=== PATIENT | female | born 1985 | race Caucasian/White ===

== ENCOUNTER → 2017-09-12 | Outpatient (REF) | payer OTHER ==
[2017-09-12 19:46] LABS: APPEARANCE, URINE CLEAR (CLEAR); BACTERIA, URINE AUTO 1+ (NEGATIVE); BILIRUBIN, URINE AUTO NEGATIVE (NEGATIVE); BLOOD, URINE BLOOD NEGATIVE (NEGATIVE); COLOR, URINE YELLOW (YELLOW); GLUCOSE, URINE (UA) AUTO NEGATIVE (NEGATIVE); KETONE, URINE AUTO NEGATIVE (NEGATIVE); LEUKOCYTE ESTERASE, URINE AUTO TRACE (NEGATIVE); MUCUS, URINE SMALL (NEGATIVE); NITRITE, URINE AUTO NEGATIVE (NEGATIVE); PROTEIN, URINE AUTO 1+ mg/dL (NEGATIVE); RBC, URINE AUTO 1 /HPF (0-3); SQUAMOUS EPITHELIAL CELL UR AU 0 /HPF (0-6); WBC, URINE AUTO 12 /HPF (0-3)
== END ==
LOC: M LAB REF 18:40
DX: N39.0 Urinary tract infection, site not specified (principal)

== ENCOUNTER → 2018-01-08 | Outpatient (REF) | payer OTHER ==
[2018-01-08 18:26] LABS: HEMATOCRIT 35.5 % (36.0-47.0); HEMOGLOBIN 11.7 g/dl (12.0-15.5); MEAN CORPUSCULAR HEMOGLOBIN 30.1 pg (27.0-33.0); MEAN CORPUSCULAR VOLUME 91.3 fl (80.0-96.0); PLATELET COUNT, AUTOMATED 259 10^3/uL (150-450); RED BLOOD COUNT 3.89 10^6/uL (4.00-5.40); RED CELL DISTRIBUTION WIDTH 13.1 % (11.5-14.5); WHITE BLOOD COUNT 10.6 10^3/uL (4.0-10.0)
[2018-01-10 10:48] LABS: RUBELLA IgG QUALITATIVE IMMUNE (IMMUNE)
[2018-01-10 10:59] LABS: HEPATITIS B SURFACE ANTIGEN NEGATIVE (NEGATIVE)
[2018-01-10 11:18] LABS: HEPATITIS C VIRUS ABY INDEX 0.1 INDEX (<0.8)
[2018-01-10 11:19] LABS: HIV 1&2 SCREEN CENTAUR NEGATIVE (NEGATIVE)
== END ==
LOC: M LAB REF 16:54
DX: O36.80X0 Pregnancy with inconclusive fetal viability, not applicable or unspecified (principal); Z3A.00 Weeks of gestation of pregnancy not specified
CPT/HCPCS: 86762

== ENCOUNTER 2018-01-14 09:27 | Emergency (ER) | payer OTHER ==
[2018-01-14] MEDS: ACETAMINOPHEN 325 MG TAB PO (11:44)
== END 2018-01-14 11:48 | disposition home or self-care (01) ==
LOC: M ED 09:27
DX: O99.89 Other specified diseases and conditions complicating pregnancy, childbirth and the puerperium (principal); S49.91XA Unspecified injury of right shoulder and upper arm, initial encounter; V86.95XA Unspecified occupant of 3- or 4- wheeled all-terrain vehicle (ATV) injured in nontraffic accident, initial encounter; Y92.89 Other specified places as the place of occurrence of the external cause; D25.9 Leiomyoma of uterus, unspecified; N83.202 Unspecified ovarian cyst, left side; Z3A.01 Less than 8 weeks gestation of pregnancy
CPT/HCPCS: 73030

== ENCOUNTER → 2018-06-07 | Outpatient (CLI) | payer OTHER ==
[2018-06-07 12:25] LABS: HEMATOCRIT 31.9 % (36.0-47.0); HEMOGLOBIN 10.4 g/dl (12.0-15.5); MEAN CORPUSCULAR HEMOGLOBIN 30.1 pg (27.0-33.0); MEAN CORPUSCULAR HGB CONC 32.6 g/dl (32.0-36.5); MEAN CORPUSCULAR VOLUME 92.2 fl (80.0-96.0); PLATELET COUNT, AUTOMATED 212 10^3/uL (150-450); RED BLOOD COUNT 3.46 10^6/uL (4.00-5.40); RED CELL DISTRIBUTION WIDTH 12.7 % (11.5-14.5); WHITE BLOOD COUNT 11.9 10^3/uL (4.0-10.0)
[2018-06-07 12:53] LABS: GLUCOSE CHALLENGE TEST 1 HOUR 146 MG/DL (LESS THAN 140)
== END ==
LOC: M LAB 10:50
DX: Z34.02 Encounter for supervision of normal first pregnancy, second trimester (principal); Z3A.00 Weeks of gestation of pregnancy not specified
CPT/HCPCS: 82950

== ENCOUNTER → 2018-06-18 | Outpatient (CLI) | payer OTHER ==
[2018-06-18 08:56] LABS: GLUCOSE, FASTING 103 MG/DL (LESS THAN 95)
[2018-06-18 10:08] LABS: 1 HR GLUCOSE 184 MG/DL (LESS THAN 180)
[2018-06-18 11:02] LABS: 2 HR GLUCOSE 130 MG/DL (LESS THAN 155)
[2018-06-18 12:33] LABS: 3 HR GLUCOSE 62 MG/DL (LESS THAN 140)
== END ==
LOC: M LAB 08:08
DX: R73.02 Impaired glucose tolerance (oral) (principal)
CPT/HCPCS: 82951

== ENCOUNTER → 2018-07-26 | Outpatient (REF) | payer OTHER ==
[~2018-07-26] MED LIST: ACET500T15 PO; PRENCHW PO
== END ==
LOC: M LAB REF 13:30
PROVIDERS: ATTEND Obstetrics & Gynecology
DX: Z34.83 Encounter for supervision of other normal pregnancy, third trimester (principal)

== ENCOUNTER 2018-08-12 19:01 | Outpatient (CLI) | payer OTHER ==
[~2018-08-12] VITALS: Ht 167.6 cm; Wt 125.9 kg
[2018-08-12 19:28] VITALS: BP 129/68
[2018-08-12] MEDS ORDERED: VALT500T PO (19:45)
[2018-08-12 20:08] VITALS: BP 124/60
[2018-08-12 20:59] VITALS: BP 124/60
== END 2018-08-12 20:53 | disposition home or self-care (01) ==
LOC: M LDO 19:01
PROVIDERS: ATTEND Obstetrics & Gynecology
DX: O99.89 Other specified diseases and conditions complicating pregnancy, childbirth and the puerperium (principal); E16.2 Hypoglycemia, unspecified; Z3A.38 38 weeks gestation of pregnancy
CPT/HCPCS: 59025; G0378; G0463

== ENCOUNTER 2018-08-22 06:15 | Inpatient (IN) | payer OTHER ==
[2018-08-22] VITALS (39 sets, daily range): BP systolic 125–194; BP diastolic 65–103
[~2018-08-22] VITALS: Ht 167.6 cm; Wt 125.2 kg
[~2018-08-22 06:15] MED LIST changes: +VALT500T PO
[2018-08-22] MEDS ORDERED: LACTATED RINGER'S 1000 ML IV STA (07:13)
[2018-08-22 08:09] LABS: HEMATOCRIT 33.2 % (36.0-47.0); HEMOGLOBIN 10.8 g/dl (12.0-15.5); MEAN CORPUSCULAR HEMOGLOBIN 28.4 pg (27.0-33.0); MEAN CORPUSCULAR HGB CONC 32.5 g/dl (32.0-36.5); MEAN CORPUSCULAR VOLUME 87.4 fl (80.0-96.0); PLATELET COUNT, AUTOMATED 187 10^3/uL (150-450); WHITE BLOOD COUNT 7.9 10^3/uL (4.0-10.0)
[2018-08-22] MEDS ORDERED: AMPICILLIN SOD 2 GM in APPROPRIATE DILUENT 20 ML IV STA (08:24)
[2018-08-22 08:39] LABS: ALBUMIN 2.5 GM/DL (3.2-5.2); ALT/SGPT 14 U/L (12-78); BILIRUBIN,TOTAL 0.2 MG/DL (0.2-1.0); BLOOD UREA NITROGEN 9 MG/DL (7-18); CALCIUM LEVEL 8.8 MG/DL (8.5-10.1); CARBON DIOXIDE LEVEL 21 MEQ/L (21-32); CHLORIDE LEVEL 108 MEQ/L (98-107); CREATININE FOR GFR 0.48 MG/DL (0.55-1.30); GLOMERULAR FILTRATION RATE > 60.0 (>60); GLUCOSE, FASTING 83 MG/DL (70-100); POTASSIUM SERUM 4.1 MEQ/L (3.5-5.1); SODIUM LEVEL 139 MEQ/L (136-145)
[2018-08-22] MEDS ORDERED: miSOPROStol 50 MCG 1/2 TAB (S0191) As Ordered ONE (08:39)
[2018-08-22] MEDS: miSOPROStol 50 MCG 1/2 TAB (S0191) PO SCH ×2 (08:43→13:33)
[2018-08-22] MEDS: LR 1,000 ML IV SCH ×3 (09:26→23:13)
[2018-08-22] MEDS: AMPICILLIN SOD 1 GM in APPROPRIATE DILUENT 10 ML IV SCH ×3 (13:33→21:21)
[2018-08-22] MEDS ORDERED: OXYTOCIN 30 UNITS IN 0.9% NaCl 500ML IV BAG (J2590) As Ordered ONE (18:38)
[2018-08-22] MEDS ORDERED: OXYTOCIN DRIP 30 UNITS in APPROPRIATE DILUENT 1 EA IV SCH ×2 (18:45→19:00)
[2018-08-22] MEDS ORDERED: FENTANYL 2MCG/ML ROPIVACAINE 0.2% IN 0.9% NACL 100ML IVBAG As Ordered ONE (22:09)
[2018-08-22] MEDS ORDERED: ONDANSETRON 4MG/2ML VIAL (J2405) IV PRN (23:45)
[2018-08-22] MEDS ORDERED: ePHEDrine SULFATE 25 MG/5 ML(5MG/ML) SYRINGE IV PRN (23:45)
[2018-08-22] MEDS ORDERED: FENTANYL/ROPIVACAINE/NACL BAG 100 ML EPIDURAL SCH (23:45)
[2018-08-22] MEDS ORDERED: REFRIGERATOR IV KEYS XX PRN (23:45)
[2018-08-22] MEDS ORDERED: diphenhydrAMINE INJ 50MG/ML VIAL (J1200) IV PRN (23:45)
[2018-08-22] MEDS ORDERED: NALOXONE INJ 0.4 MG/1 ML VIAL (J2310) IV PRN (23:45)
[2018-08-22] MEDS ORDERED: EPIDURAL/PCA KEYS XX PRN (23:45)
[2018-08-22] MEDS ORDERED: EPIDURAL COMMENT XX SCH (23:45)
[2018-08-23] VITALS (39 sets, daily range): BP systolic 118–168; BP diastolic 56–122
[2018-08-23] MEDS: AMPICILLIN SOD 1 GM in APPROPRIATE DILUENT 10 ML IV SCH ×3 (01:00→12:09)
[2018-08-23] MEDS: LR 1,000 ML IV SCH (07:25)
[2018-08-23] MEDS ORDERED: ACETAMINOPHEN 500 MG TAB PO PRN (12:00)
[2018-08-23] MEDS ORDERED: GENTAMICIN 80 MG in APPROPRIATE DILUENT 1 EA IV SCH (13:00)
[2018-08-23] MEDS ORDERED: BICITRA 30ML SOLN UDC PO ONE (13:30)
[2018-08-23] MEDS ORDERED: ONDANSETRON 4MG/2ML VIAL (J2405) As Ordered ONE (14:24)
[2018-08-23] MEDS ORDERED: dexameTHASONE 4 MG/ML 1ML VIAL (J1100) As Ordered ONE (14:24)
[2018-08-23] MEDS ORDERED: OXYTOCIN INJ 10 UNITS/ML VIAL (J2590) As Ordered ONE (14:24)
[2018-08-23] MEDS ORDERED: KETOROLAC 60 MG/2 ML VIAL (J1885) As Ordered ONE (14:24)
[2018-08-23] MEDS ORDERED: MORPHINE PRES-FREE INJ 10 MG/10 ML VIAL (J2274) As Ordered ONE (14:25)
[2018-08-23] MEDS ORDERED: LIDOCAINE PRES-FREE 2% 10ML AMP As Ordered ONE (14:26)
[2018-08-23] MEDS ORDERED: diphenhydrAMINE INJ 50MG/ML VIAL (J1200) IV PRN (14:30)
[2018-08-23] MEDS ORDERED: METOCLOPRAMIDE INJ 10MG/2ML VIAL (J2765) IV PRN (14:30)
[2018-08-23] MEDS ORDERED: ONDANSETRON 4MG/2ML VIAL (J2405) IV PRN ×2 (14:30→14:45)
[2018-08-23] MEDS ORDERED: NALBUPHINE HCL 10 MG/ML AMP (J2300) IV PRN (14:30)
[2018-08-23] MEDS ORDERED: NALOXONE INJ 0.4 MG/1 ML VIAL (J2310) IV PRN ×2 (14:30)
[2018-08-23] MEDS ORDERED: OXYTOCIN DRIP 30 UNITS in APPROPRIATE DILUENT 1 EA IV SCH (14:35)
[2018-08-23] MEDS ORDERED: RHOGAM 300 MCG (1500 IU) INJ (J2790) IM SCH (14:45)
[2018-08-23] MEDS ORDERED: NORCO, ANEXSIA 5/325MG TABLET (HYDROcodone/ACETAMINOPHEN) PO PRN ×2 (14:45)
[2018-08-23] MEDS ORDERED: MOM 30ML SUSPENSION UDC PO PRN (14:45)
[2018-08-23] MEDS ORDERED: MEASLES,MUMPS,RUBELLA VACCINE INJ (MMR-II) (90707) SC SCH (14:45)
[2018-08-23] MEDS ORDERED: OXYTOCIN 30 UNITS IN 0.9% NaCl 500ML IV BAG (J2590) As Ordered ONE (14:57)
[2018-08-23] MEDS ORDERED: fentaNYL 100 MCG/2 ML INJECTION (J3010) IV PRN (15:00)
[2018-08-23] MEDS ORDERED: PERCOCET 5MG/325MG TAB PO PRN (15:00)
[2018-08-23 15:01] LABS: CORD GAS ABE A -5.3; CORD GAS HCO3 A 20.1 MEQ/L; CORD GAS O2 SAT A 93.3 %; CORD GAS PCO2 A 38.9 mmHg; CORD GAS PO2 A 55.9 mmHg; CORD GAS SBC A 20.1 MEQ/L; CORD GAS TCO2 A 21.3 MEQ/L
[2018-08-23 15:03] LABS: CORD GAS PH A 7.331 UNITS
[2018-08-23 15:05] LABS: CORD GAS ABE V -4.1; CORD GAS HCO3 V 23.7 MEQ/L; CORD GAS O2 SAT V 39.3 %; CORD GAS PCO2 V 54.2 mmHg; CORD GAS PH V 7.259 UNITS; CORD GAS PO2 V 19.6 mmHg; CORD GAS SBC V 19.8 MEQ/L; CORD GAS TCO2 V 25.4 MEQ/L
--- NOTE | 2018-08-23 18:17 | HPE ---
DATE OF ADMISSION: 08/22/2018 Katya is a 33-year-old female, 1, para 0 with an estimated date of confinement (EDC) of 08/26/2018, estimated gestational age (EGA) 39-4/7 weeks gestation, who has a history of gestational diabetes, diet controlled, and was found to have suspected macrosomia on ultrasound. After counseling, a decision was made to admit the patient for an induction. Induction process discussed with the patient in the office. Induction consent signed. Upon admission no bleeding. No leakage of fluid. Good movement. Her record reviewed, other than advanced maternal age and gestational diabetes, uncomplicated course. LABORATORIES: Blood type is O positive, rubella immune. Hepatitis negative, HIV negative, GC/chlamydia negative. One-hour sugar testing was abnormal, so was her 3-hour sugar testing. Her GBS is positive. PAST MEDICAL HISTORY: Significant for migraine. The patient does have a history of herpes. Was on Valtrex treatment. PAST SURGICAL HISTORY: 1. [place] tooth extraction. 2. Breast reduction. SOCIAL HISTORY: The patient denies any alcohol, drugs or cigarette smoking. She is a homosexual relationship. MEDICATIONS: vitamin. ALLERGIES: No known drug allergies. PHYSICAL EXAMINATION: HEENT: Grossly within normal limits. Mildly obese female. Abdomen soft, nontender, nondistended. Extremities: No clubbing, cyanosis, or edema. Vaginal exam: Fingertip thick posterior. Fetus at -3 station in a vertex position. A thorough vaginal exam done. No evidence of any herpes lesion noted. Tracing reviewed: Category 1 tracing. ASSESSMENT: 1. Intrauterine at 39-4/7 weeks gestation, being admitted for induction. 2. Gestational diabetes, diet controlled. 3. History of herpes but no active lesion. Currently on suppressive therapy. 4. Suspected macrosomia on ultrasound. PLAN: Patient admitted to labor and delivery. Induction process discussed with the patient in great detail as well as complications that can occur from gestational diabetes and macrosomia, not to exclude shoulder dystocia. The risks and benefits of induction discussed with the patient in great detail as well as potential for section. The patient completely understands and wishes to proceed with the induction process.
[2018-08-23] MEDS: DOCUSATE SODIUM 100 MG CAP PO SCH (21:57)
[2018-08-23] MEDS: IBUPROFEN 800 MG TAB PO SCH (21:58)
[2018-08-24] MEDS: IBUPROFEN 800 MG TAB PO SCH ×3 (05:48→21:52)
[2018-08-24 06:23] VITALS: BP 121/73
[2018-08-24 06:41] LABS: HEMATOCRIT 26.4 % (36.0-47.0); HEMOGLOBIN 8.5 g/dl (12.0-15.5); MEAN CORPUSCULAR HEMOGLOBIN 28.6 pg (27.0-33.0); MEAN CORPUSCULAR HGB CONC 32.2 g/dl (32.0-36.5); MEAN CORPUSCULAR VOLUME 88.9 fl (80.0-96.0); PLATELET COUNT, AUTOMATED 154 10^3/uL (150-450); RED BLOOD COUNT 2.97 10^6/uL (4.00-5.40); WHITE BLOOD COUNT 15.2 10^3/uL (4.0-10.0)
[2018-08-24] MEDS: DOCUSATE SODIUM 100 MG CAP PO SCH ×2 (07:33→21:51)
[2018-08-24] MEDS: PRENATAL VITAMINS CHEWABLE TABLET PO SCH (07:33)
[2018-08-24 10:00] VITALS: BP 134/80
[2018-08-24] MEDS ORDERED: PERCOCET PO (13:35)
[2018-08-24] MEDS ORDERED: IBUP80TA PO (13:35)
[2018-08-24 14:34] VITALS: BP 120/58
[2018-08-24 22:18] VITALS: BP 141/80
[2018-08-25 02:24] VITALS: BP 138/85
[2018-08-25] MEDS: IBUPROFEN 800 MG TAB PO SCH (06:33)
[2018-08-25 06:49] VITALS: BP 153/92
[2018-08-25] MEDS: PRENATAL VITAMINS CHEWABLE TABLET PO SCH (07:59)
[2018-08-25] MEDS: DOCUSATE SODIUM 100 MG CAP PO SCH (07:59)
--- NOTE | 2018-08-25 19:15 | RO ---
DATE OF PROCEDURE: 08/23/2018 Katya is a 33-year-old female 1, para 0 who was admitted at 39-4/7 weeks gestation for an induction with a history of gestational diabetes, diet control, suspected macrosomia on ultrasound. After counseling, we then proceeded with Cytotec, followed by artificial rupture of membrane and Pitocin induction. She progressed to approximately 8 cm with arrest of dilatation as well as significant scalp molding. Given her current condition, we had an extensive discussion and decision was made to proceed with a primary low transverse section. PREOPERATIVE DIAGNOSES: 1. Term . 2. Arrest of dilatation with significant caput. 3. Gestational diabetes, diet control. 4. Suspected macrosomia on ultrasound. POSTOPERATIVE DIAGNOSES: 1. Term . 2. Arrest of dilatation with significant caput. 3. Gestational diabetes, diet control. 4. Suspected macrosomia on ultrasound. 5. Nuchal cord times one. 6. macrosomia. PROCEDURE: Primary low transverse section via Pfannenstiel incision. SURGEON: Mandeep Adams DO SMOKE TESTER: Dr. Luna ANESTHESIA: Epidural. COMPLICATIONS: None. ESTIMATED BLOOD LOSS: 600 mL. FINDINGS: Live female in occiput transverse position. score 9 and 9. weight 9 pounds 11 ounces. Normal appearing tubes and ovaries. Cord blood and cord gas were sent. DESCRIPTION OF PROCEDURE: After obtaining informed consent, the patient was taken to the operating room where epidural anesthetic was found to be adequate. She was then draped and prepped in the usual sterile fashion in the supine position. At this point, a Pfannenstiel incision was made. This was carried down to the fascia. Fascia was incised in midline fashion and carried through laterally. With the help of Dr. Meza, the inferior and superior aspect of the fascia was then dissected off the rectus muscles sharply. The inferior aspect was dissected off in a similar fashion. The peritoneal cavity was entered. A Mobius skin retractor was placed. A low transverse uterine incision was made. was delivered in atraumatic fashion. Nose and mouth bulb suctioned. Cord doubly clamped and cut and was handed over to the waiting warmer. Cord blood and cord gas were sent. Placenta removed manually. Uterus cleared of all clot and debris, and the uterine incision was then repaired in two separate layers of #0 Vicryl sutures. All superficial bleeders were then coagulated. Peritoneum closed in a running fashion using #2-0 Vicryl suture. Fascia closed in two separate segment of #0 Vicryl sutures. All superficial bleeders coagulated, and the skin was reapproximated in subcuticular fashion using #3-0 Vicryl on a Jimbo. Steri-Strips placed. The patient tolerated the procedure well. She was then transferred to recovery room in stable condition.
--- NOTE | 2018-08-27 17:53 | DSES ---
DATE OF ADMISSION: 08/22/2018 DATE OF DISCHARGE: 08/25/2018 33-year-old, G-1, P-0, female, 39 4/7 weeks' gestation is admitted for labor induction. She has diet controlled diabetes and suspected macrosomia. HOSPITAL COURSE: The patient was admitted on 08/22/2018. She had labor induction. She made slow progress in labored. She was eventually diagnosed with arrest of dilatation. On 08/23/2018, she underwent primary section for a 9 pound, 11 ounce female. The procedure was uncomplicated. Her postoperative course was unremarkable. She return of bladder and bowel function. Postoperative hemoglobin was 8.5 per dl. She is deemed stable for discharge on postoperative day 2. ADMISSION DIAGNOSIS: 1. . 2. Gestational diabetes, diet controlled. 3. Suspected macrosomia. DISCHARGE DIAGNOSES: 1. Delivered. PROCEDURE: Primary low-transverse section. DISPOSITION: The patient will followup with dr. Adams in two weeks. Instructions were reviewed
== END 2018-08-25 11:30 | disposition home or self-care (01) | DRG 540 ==
LOC: M LDI 06:15 → M OBS 08-23 15:54
PROVIDERS: ADMIT Obstetrics & Gynecology; ATTEND Obstetrics & Gynecology
PROC: 3E0P7GC Introduction of Other Therapeutic Substance into Female Reproductive, Via Natural or Artificial Opening (ICD-10-PCS; 2018-08-22)
PROC: 10D00Z1 Extraction of Products of Conception, Low, Open Approach (ICD-10-PCS; principal; 2018-08-23 13:47)
DX: O36.63X0 Maternal care for excessive fetal growth, third trimester, not applicable or unspecified (principal); Z3A.39 39 weeks gestation of pregnancy; O99.824 Streptococcus B carrier state complicating childbirth; O24.420 Gestational diabetes mellitus in childbirth, diet controlled; O62.0 Primary inadequate contractions; O69.81X0 Labor and delivery complicated by cord around neck, without compression, not applicable or unspecified; Z37.0 Single live birth

== ENCOUNTER → 2018-10-18 | Outpatient (CLI) | payer OTHER ==
[~2018-10-18] MED LIST changes: +IBUP80TA PO; +PERCOCET PO
== END ==
LOC: M LAB 08:42
PROVIDERS: ATTEND Obstetrics & Gynecology
DX: O24.420 Gestational diabetes mellitus in childbirth, diet controlled (principal); Z3A.00 Weeks of gestation of pregnancy not specified

== ENCOUNTER → 2019-04-21 | Outpatient (REF) | payer OTHER ==
[2019-04-21 14:56] LABS: APPEARANCE, URINE CLEAR (CLEAR); BACTERIA, URINE AUTO NEGATIVE (NEGATIVE); BILIRUBIN, URINE AUTO NEGATIVE (NEGATIVE); BLOOD, URINE BLOOD NEGATIVE (NEGATIVE); COLOR, URINE YELLOW (YELLOW); GLUCOSE, URINE (UA) AUTO NEGATIVE (NEGATIVE); KETONE, URINE AUTO NEGATIVE (NEGATIVE); LEUKOCYTE ESTERASE, URINE AUTO NEGATIVE (NEGATIVE); NITRITE, URINE AUTO NEGATIVE (NEGATIVE); PROTEIN, URINE AUTO NEGATIVE (NEGATIVE); RBC, URINE AUTO 0 /HPF (0-3); SPECIFIC GRAVITY URINE AUTO 1.018 (1.002-1.035); SQUAMOUS EPITHELIAL CELL UR AU 2 /HPF (0-6); UROBILINOGEN, URINE AUTO 0.2 mg/dL (0.0-2.0); WBC, URINE AUTO 0 /HPF (0-3)
== END ==
LOC: M LAB REF 08:32
PROVIDERS: ATTEND Physician Assistant Medical
DX: N39.0 Urinary tract infection, site not specified (principal)

== ENCOUNTER 2021-11-12 17:53 | Emergency (ER) | payer OTHER ==
[~2021-11-12] VITALS: Ht 167.6 cm; Wt 109.8 kg
[2021-11-13] MEDS ORDERED: ONDANSETRON 4MG/2ML VIAL IV ONE (01:15)
[2021-11-13] MEDS ORDERED: NS 1,000 ML IV ONE (01:15)
[2021-11-13 01:33] LABS: BASO % 0.4 % (0.0-1.0); HEMATOCRIT 39.6 % (36.0-47.0); HEMOGLOBIN 13.3 g/dl (12.0-15.5); LYMPH # 0.6 10^3/uL (1.5-5.0); LYMPH % 8.1 % (24.0-44.0); MEAN CORPUSCULAR HEMOGLOBIN 30.2 pg (27.0-33.0); MEAN CORPUSCULAR HGB CONC 33.6 g/dl (32.0-36.5); MEAN CORPUSCULAR VOLUME 89.8 fl (80.0-96.0); MONO # 0.7 10^3/uL (0.0-0.8); MONO % 9.2 % (2.0-8.0); NEUTROPHILS # 5.9 10^3/uL (1.5-8.5); PLATELET COUNT, AUTOMATED 205 10^3/uL (150-450); RED BLOOD COUNT 4.41 10^6/uL (4.00-5.40); WHITE BLOOD COUNT 7.2 10^3/uL (4.0-10.0)
[2021-11-13] MEDS ORDERED: ACETAMINOPHEN 325 MG TAB PO ONE (02:00)
[2021-11-13] MEDS ORDERED: KETOROLAC 30 MG/ML 1ML VIAL IV ONE (02:00)
[2021-11-13 02:04] LABS: BLOOD UREA NITROGEN 10 MG/DL (7-18); CALCIUM LEVEL 8.6 MG/DL (8.5-10.1); CARBON DIOXIDE LEVEL 24 MEQ/L (21-32); CHLORIDE LEVEL 106 MEQ/L (98-107); CREATININE FOR GFR 0.78 MG/DL (0.55-1.30); GLOMERULAR FILTRATION RATE > 60.0 (>60); GLUCOSE, FASTING 101 MG/DL (70-100); POTASSIUM SERUM 3.7 MEQ/L (3.5-5.1); SODIUM LEVEL 139 MEQ/L (136-145)
[2021-11-13 03:04] VITALS: BP 130/88
== END 2021-11-13 03:05 | disposition home or self-care (01) ==
LOC: M ED 17:53
DX: U07.1 COVID-19 (principal); R50.9 Fever, unspecified; I45.19 Other right bundle-branch block; Z79.899 Other long term (current) drug therapy
CPT/HCPCS: 71046; 80048; 84484; 84702; 85025; 87486; 87581; 87633; 87798; 93005; 96361; 96374; 96375; 99284; J1885; J2405

== ENCOUNTER → 2022-03-04 | Outpatient (CLI) | payer OTHER | LOC: M WUC 13:10 | PROVIDERS: ATTEND Student in an Organized Health Care Education/Training Program | DX: M25.511 Pain in right shoulder (principal) ==

== ENCOUNTER 2022-06-13 23:10 | Emergency (ER) | payer OTHER ==
[~2022-06-13] VITALS: Ht 170.2 cm; Wt 110.5 kg
[2022-06-14] MEDS ORDERED: ACETAMINOPHEN TAB 650MG DOSE (2X325MG) PO ONE (07:25)
[2022-06-14] MEDS ORDERED: KETOROLAC 30 MG/ML 1ML VIAL IM ONE (07:25)
[2022-06-14 08:27] VITALS: BP 135/83
[2022-06-14] MEDS ORDERED: MEDR4PAK PO (09:02)
[2022-06-14] MEDS ORDERED: NORCO, ANEXSIA 5/325MG TABLET (HYDROcodone/ACETAMINOPHEN) PO ONE (09:30)
== END 2022-06-14 09:47 | disposition home or self-care (01) ==
LOC: M ED 23:10
DX: G89.29 Other chronic pain (principal); M54.41 Lumbago with sciatica, right side; M51.36 Other intervertebral disc degeneration, lumbar region; Z79.899 Other long term (current) drug therapy
CPT/HCPCS: 93971; 96372; 99283; J1885

== ENCOUNTER → 2022-06-23 | Outpatient (REF) | payer OTHER ==
[~2022-06-23] MED LIST changes: +MEDR4PAK PO
== END ==
LOC: M LAB REF 12:14
PROVIDERS: ATTEND Physician Assistant
DX: B34.9 Viral infection, unspecified (principal)

== ENCOUNTER 2023-07-07 09:27 | Emergency (ER) | payer OTHER ==
[~2023-07-07] VITALS: Ht 170.2 cm; Wt 109.1 kg
[2023-07-07] MEDS ORDERED: WELLTAB38 PO (09:44)
[2023-07-07] MEDS ORDERED: HYDR-4570 PO (09:45)
[2023-07-07 10:44] LABS: RSV AMPLIFICATION NEGATIVE (NEGATIVE)
[2023-07-07] MEDS ORDERED: KETOROLAC 30 MG/ML 1ML VIAL IV ONE (11:35)
[2023-07-07] MEDS ORDERED: ONDANSETRON 4MG 2ML VIAL IV ONE (11:35)
[2023-07-07] MEDS ORDERED: NS 1,000 ML IV ONE (11:35)
[2023-07-07 12:18] LABS: BASO % 0.2 % (0.0-1.0); EOS % 0.1 % (0.0-3.0); HEMATOCRIT 47.3 % (36.0-47.0); HEMOGLOBIN 15.8 g/dl (12.0-15.5); LYMPH # 0.5 10^3/uL (1.5-5.0); LYMPH % 2.7 % (24.0-44.0); MEAN CORPUSCULAR HEMOGLOBIN 30.2 pg (27.0-33.0); MEAN CORPUSCULAR HGB CONC 33.4 g/dl (32.0-36.5); MEAN CORPUSCULAR VOLUME 90.4 fl (80.0-96.0); MONO # 0.7 10^3/uL (0.0-0.8); MONO % 3.8 % (2.0-8.0); NEUTROPHILS # 15.8 10^3/uL (1.5-8.5); NEUTROPHILS % 92.8 % (36.0-66.0); PLATELET COUNT, AUTOMATED 272 10^3/uL (150-450); RED BLOOD COUNT 5.23 10^6/uL (4.00-5.40)
[2023-07-07] MEDS ORDERED: ISOVUE-370 76% 100ML VIAL As Ordered ONE (12:23)
[2023-07-07 12:47] LABS: ALBUMIN 3.7 G/DL (3.2-5.2); BILIRUBIN,DIRECT 0.3 MG/DL (<0.4); BILIRUBIN,TOTAL 0.9 MG/DL (0.3-1.2); TOTAL PROTEIN 7.3 G/DL (5.7-8.2)
[2023-07-07] MEDS ORDERED: ONDA4TAB6 PO (14:19)
[2023-07-07] MEDS ORDERED: DICY20TA20 PO (14:19)
[2023-07-07 14:44] VITALS: BP 118/75; TEMP 98.3; O2SAT 100
== END 2023-07-07 14:47 | disposition home or self-care (01) ==
LOC: M ED 09:27
DX: A09 Infectious gastroenteritis and colitis, unspecified (principal); M54.9 Dorsalgia, unspecified; F41.9 Anxiety disorder, unspecified; Z79.899 Other long term (current) drug therapy
CPT/HCPCS: 74177; 80047; 80076; 83690; 84702; 85025; 87631; 96374; 96375; 99284; J1885; J2405; Q9967

== ENCOUNTER → 2023-10-26 | Outpatient (CLI) | payer OTHER ==
[~2023-10-26] MED LIST changes: +DICY20TA20 PO; +HYDR-4570 PO; +ONDA4TAB6 PO; +WELLTAB38 PO
[2023-10-26 11:05] LABS: HEMOGLOBIN A1c 5.2 % (4.0-6.0)
[2023-10-26 11:10] LABS: ALBUMIN 3.4 G/DL (3.2-5.2); ALKALINE PHOSPHATASE 83 U/L (46-116); ALT/SGPT 25 U/L (7.0-40); AST/SGOT 23 U/L (<34); BILIRUBIN,DIRECT 0.2 MG/DL (<0.4); BILIRUBIN,TOTAL 0.4 MG/DL (0.3-1.2); CREATININE FOR GFR 0.74 MG/DL (0.55-1.30); GLOMERULAR FILTRATION RATE > 60.0 (>58)
== END ==
LOC: M LAB 08:56
PROVIDERS: ATTEND Internal Medicine Obesity Medicine
DX: E66.3 Overweight (principal)

== ENCOUNTER → 2024-03-07 | Outpatient (CLI) | payer OTHER ==
[~2024-03-07] MED LIST changes: +ONDA-282 PO; -ONDA4TAB6 PO
== END ==
LOC: M WHC 10:00
PROVIDERS: ATTEND Obstetrics & Gynecology
DX: Z12.31 Encounter for screening mammogram for malignant neoplasm of breast (principal)

== ENCOUNTER → 2024-07-09 | Outpatient (CLI) | payer OTHER ==
[2024-07-09 10:09] LABS: HEMOGLOBIN A1c 5.1 % (4.0-6.0)
[2024-07-09 10:12] LABS: ALBUMIN 3.3 G/DL (3.2-5.2); ALKALINE PHOSPHATASE 75 U/L (35-104); ALT/SGPT 14 U/L (7.0-40); AST/SGOT 13 U/L (<34); BILIRUBIN,DIRECT 0.1 MG/DL (<0.4); BILIRUBIN,TOTAL 0.3 MG/DL (0.3-1.2); CREATININE FOR GFR 0.77 MG/DL (0.55-1.30); GLOMERULAR FILTRATION RATE > 60.0 (>58); TOTAL PROTEIN 6.7 G/DL (5.7-8.2); TRIGLYCERIDES LEVEL 60 MG/DL (<150)
== END ==
LOC: M LAB 09:20
PROVIDERS: ATTEND Personal Emergency Response Attendant
DX: E66.9 Obesity, unspecified (principal)

== ENCOUNTER → 2025-02-12 | Outpatient (CLI) | payer OTHER ==
[~2025-02-12] MED LIST changes: +HYDR-3364 PO; -HYDR-4570 PO; +PROHANCE 279.3MG/ML 15ML VIAL ONE; +PROHANCE 279.3MG/ML 5ML VIAL ONE
== END ==
LOC: M PLAIMG 09:58
PROVIDERS: ATTEND Physician Assistant
DX: M47.26 Other spondylosis with radiculopathy, lumbar region (principal); M51.16 Intervertebral disc disorders with radiculopathy, lumbar region
CPT/HCPCS: 72158; A9576